=== PATIENT | male | born 1940 | race Two or more races ===

== ENCOUNTER 2021-11-13 23:41 | Emergency (ER) | payer OTHER ==
[~2021-11-13] VITALS: Ht 167.6 cm; Wt 81.6 kg
[2021-11-14] MEDS ORDERED: JANUVIA100 MG (00:33)
[2021-11-14] MEDS ORDERED: ECOTRIN81 MG (00:33)
[2021-11-14] MEDS ORDERED: COZAAR100 MG (00:33)
[2021-11-14] MEDS ORDERED: TOPROL XL100 M1 (00:34)
[2021-11-14] MEDS ORDERED: METFORMIN HCL500 M3 (00:34)
[2021-11-14] MEDS ORDERED: LIPITOR40 MG (00:34)
[2021-11-14] MEDS ORDERED: PROTONIX20 MG (00:35)
[2021-11-14] MEDS ORDERED: KAPVAY0.1 MG (00:35)
[2021-11-14] MEDS ORDERED: SYNTHROID50 MCG (00:35)
== END 2021-11-14 11:15 | disposition home or self-care (01) ==
LOC: ER 23:41
DX: R07.89 Other chest pain (principal); K29.70 Gastritis, unspecified, without bleeding; E78.5 Hyperlipidemia, unspecified; R10.13 Epigastric pain; I11.9 Hypertensive heart disease without heart failure; Z95.5 Presence of coronary angioplasty implant and graft; K21.9 Gastro-esophageal reflux disease without esophagitis; I25.2 Old myocardial infarction; Z20.822 Contact with and (suspected) exposure to COVID-19